=== PATIENT | female | born 1975 | race Caucasian/White ===

== ENCOUNTER 2020-09-17 10:06 | Outpatient (CLI) | payer OTHER ==
[~2020-09-17] VITALS: Ht 162.6 cm; Wt 70.3 kg
[2020-09-17 10:28] VITALS: BP 133/88
--- NOTE | 2020-09-17 18:00 | Consultation ---
DATE OF CONSULTATION: 09/17/2020 CONSULTING PHYSICIAN: Javy Herndon MD. CHIEF COMPLAINT: Abdominal pain. HISTORY OF PRESENT ILLNESS: This is a very pleasant 45-year-old female with past medical history of celiac disease diagnosed with serology, currently on gluten-free diet compliance. She has been having some abdominal pain and diarrhea. The patient had a CT of the abdomen and pelvis done in November 2019, which showed evidence of possible panniculitis. Recommendation was to get another CT in six months. The patient is here because she is still having symptoms. PAST MEDICAL HISTORY: 1. Anxiety. 2. Kidney stones. 3. GERD. 4. Celiac disease. 5. Panniculitis. PAST SURGICAL HISTORY: Varicose vein repair. MEDICATIONS: None. FAMILY HISTORY: Father had coronary artery disease. Mother had thyroid cancer. SOCIAL HISTORY: The patient denies any tobacco, alcohol, or IV drug abuse. ALLERGIES: To aspirin, soy, and gluten. REVIEW OF SYSTEMS: Positive for abdominal pain, GERD, diarrhea, and bloating. PHYSICAL EXAMINATION: VITAL SIGNS: Temperature 97.7, pulse is 75, respirations 20. Height is 5 feet 4 inches. Weight is 155. HEENT: Normocephalic and atraumatic. Sclerae anicteric. NECK: Supple. No evidence of obvious lymphadenopathy. CARDIOVASCULAR: Regular rate and rhythm. Plus S1, S2. LUNGS: Clear to auscultation bilaterally. ABDOMEN: Positive bowel sounds. Soft and nontender. No rebound. No guarding. No peritoneal sign. EXTREMITIES: No cyanosis. No clubbing. No edema. ASSESSMENT AND PLAN: This is a 45-year-old female with diagnosis of celiac disease per serology, on almost gluten-free diet, history of intermittent diarrhea, and abdominal pain. CT was reviewed and showed evidence of panniculitis. Recommendation was to do a repeat CT in six months. We will order CT of the abdomen and pelvis to follow up the mesenteric panniculitis. Also, the patient was given a prescription for Align one tablet p.o. daily for probiotic supplements. The patient was reassured and was told to come back after the CT was done for followup. Javy Herndon M.D. DR: PATRICIA JOB#: [id number] CC:
== END 2020-09-17 12:06 | disposition home or self-care (01) ==
LOC: PAN 10:06
DX: R10.9 Unspecified abdominal pain (principal); F41.9 Anxiety disorder, unspecified; K21.9 Gastro-esophageal reflux disease without esophagitis; K90.0 Celiac disease; Z87.442 Personal history of urinary calculi; M79.3 Panniculitis, unspecified; R19.7 Diarrhea, unspecified; R14.0 Abdominal distension (gaseous); Z88.6 Allergy status to analgesic agent; Z91.018 Allergy to other foods; Z80.8 Family history of malignant neoplasm of other organs or systems; Z82.49 Family history of ischemic heart disease and other diseases of the circulatory system
CPT/HCPCS: G0463